=== PATIENT | female | born 1950 | race Caucasian/White ===

== ENCOUNTER 2025-04-08 10:57 | Day surgery (SDC) | payer MEDICARE ==
[2025-04-08] MEDS: IV FLUID CONTINUATION 1,000 ML IV ONE (12:02)
[2025-04-08 12:11] VITALS: RESP 16; TEMP 97.2
[2025-04-08] MEDS: LACTATED RINGERS 1,000 ML IV SCH (12:35)
[2025-04-08] MEDS ORDERED: PROPOFOL 10 MG/ML 20 ML VIAL IV ONE (12:56)
--- NOTE | 2025-04-08 13:02 | P.PCN ---
Date of Procedure: 04/08/25 Procedure(s) Performed: BRIEF HISTORY: Patient is a 74-year-old, pleasant, white female scheduled for an upper endoscopy as a part of the evaluation of longstanding history of GERD and Aviles's Esophagus. PROCEDURE PERFORMED: Esophagogastroduodenoscopy with biopsy.. PREOPERATIVE DIAGNOSIS: GERD/Aviles's esophagus. IV sedation per anesthesia. PROCEDURE: After informed consent was obtained, the patient was brought into the endoscopy unit. IV sedation was administered by Anesthesia under continuous monitoring. Initially the Olympus GIF-140 video endoscope was inserted into the mouth. Esophagus intubated without any difficulty. It was gradually advanced into the stomach and duodenum and carefully examined. The bulb and the second part of the duodenum appeared normal. The scope at this time was withdrawn to the stomach, adequately insufflated with air, and upon careful examination, mucosa of the antrum, body, cardia and the fundus appeared normal. Multiple small gastric polyps noted which were biopsied. The scope was then withdrawn into the esophagus. Small hiatal hernia noted. The GE junction was located at 33 cm from the incisors. There was a small island of Aviles's appearing mucosa extending 3 to 4 mm in length that was biopsied. The rest of the esophagus appeared normal. There were no erosions or ulcerations seen and the patient tolerated the procedure well. IMPRESSION: 1. Short segment Aviles's esophagus status post biopsy. 2. Small hiatal hernia. 3. Multiple small gastric polyps RECOMMENDATIONS: The findings of this examination were discussed with the patient as well as her family. She was advised to follow-up with the biopsy results.. If the biopsy confirms the presence of Aviles's esophagus, he can have repeat upper endoscopy in 3 years. Continue with omeprazole 20 mg daily and follow antireflux measures.
[2025-04-08 13:27] VITALS: BP 142/78; PULSE 78
== END 2025-04-08 13:39 | disposition home or self-care (01) ==
LOC: ORWHC2ENDO 10:57
PROVIDERS: ATTEND Internal Medicine Gastroenterology
DX: K22.70 Barrett's esophagus without dysplasia (principal); K21.00 Gastro-esophageal reflux disease with esophagitis, without bleeding; K31.7 Polyp of stomach and duodenum; K44.9 Diaphragmatic hernia without obstruction or gangrene; I10 Essential (primary) hypertension; E78.5 Hyperlipidemia, unspecified; F41.0 Panic disorder [episodic paroxysmal anxiety]; Z79.899 Other long term (current) drug therapy
CPT/HCPCS: 88305; 88312; 43239; J2704